=== PATIENT | female | born 1985 | race Caucasian/White ===

== ENCOUNTER 2016-10-20 20:47 | Emergency (ER) | payer BC, OTHER ==
[2016-10-20] MEDS ORDERED: KETOROLAC TROMETHAMINE 30 MG/1 ML VIAL IVPUSH ONE (20:49)
[2016-10-20] MEDS ORDERED: SODIUM CHLORIDE 1,000 ML IV STA (20:49)
--- NOTE | 2016-10-20 20:58 | PDOC ---
History of Present Illness - General History Source: Patient Exam Limitations: No Limitations - History of Present Illness Initial Comments: 10/20/16 20:59 The patient is a 31 year old female with no PMHx who presents to the ED with left flank pain today. SHe reports that the pain has progressively worsened since this afternoon. She states that the pain wraps around to the front of her abdomen. She reports nausea, but no vomiting. She denies diaphoresis. She denies prior similar symptoms. <Perlita Chiang - Last Filed: 10/20/16 21:11> <Peterson Meza - Last Filed: 10/21/16 00:40> - General Chief Complaint: Pain, Acute Stated Complaint: LEFT FLANK PAIN Time Seen by Provider: 10/20/16 20:49 Past History <Perlita Chiang - Last Filed: 10/20/16 21:11> - Immunization History Immunization Up to Date: Yes - Psycho/Social/Smoking Cessation Hx Anxiety: No Suicidal Ideation: No Smoking Status: No Smoking History: Never smoked Number of Cigarettes Smoked Daily: 0 <Peterson Meza - Last Filed: 10/21/16 00:40> - Past Medical History Allergies/Adverse Reactions: Allergies Allergy/AdvReac Type Severity Reaction Status Date / Time No Known Allergies Allergy Unverified 02/10/13 23:10 Home Medications: Ambulatory Orders Cephalexin Monohydrate [Keflex] 500 mg PO Q6H #20 capsule 02/10/13 Review of Systems - Review of Systems : Yes: Flank Pain (left) <Perlita Chiang - Last Filed: 10/20/16 21:11> *Physical Exam - Physical Exam General Appearance: Yes: Nourished, Appropriately Dressed, Apparent Distress (2/ 2 PAIN) HEENT: positive: Normal ENT Inspection (BUT DRY MUCOSAE) Respiratory/Chest: positive: Lungs Clear, Normal Breath Sounds. negative: Respiratory Distress Cardiovascular: positive: Regular Rhythm, Regular Rate Gastrointestinal/Abdominal: positive: Normal Bowel Sounds, Tender (LLQ NO G/R), Soft Musculoskeletal: positive: Normal Inspection. negative: CVA Tenderness Extremity: positive: Normal Capillary Refill, Normal Inspection Integumentary: positive: Normal Color. negative: Rash Neurologic: positive: Fully Oriented, Alert, Normal Mood/Affect, Normal Response , Motor Strength 5/5 <Peterson Meza - Last Filed: 10/21/16 00:40> ED Treatment Course - LABORATORY CBC & Chemistry Diagram: 10/20/16 21:00 10/20/16 21:00 <Perlita Chiang - Last Filed: 10/20/16 21:11> - LABORATORY CBC & Chemistry Diagram: 10/20/16 21:00 10/20/16 21:00 <Peterson Meza - Last Filed: 10/21/16 00:40> Progress Note - Progress Note Progress Note: LIKELY RENAL COLIC PAIN CONTROL/LABS/IVF/REASSESS CT: LT OVARIAN CYST US: 6 CM LT OV CYST. GOOD FLOW FEELS BETTER <Peterson Meza - Last Filed: 10/21/16 00:40> *DC/Admit/Observation/Transfer - Attestations Scribe Attestion: 10/20/16 20:59 Documentation prepared by Perlita hCiang, acting as medical claims analyst for Peterson Meza MD. <Perlita Chiang - Last Filed: 10/20/16 21:11> <Peterson Meza - Last Filed: 10/21/16 00:40> Diagnosis at time of Disposition: Cyst of ovary Qualifiers: Laterality: left Qualified Code(s): N83.20 - Unspecified ovarian cysts - Discharge Dispostion Condition at time of disposition: Stable - Patient Instructions Additional Instructions: IBUPROFEN 600 MG 3 TIMES A DAY FOR 3 DAYS SEE YOUR [employer]OR[employer] SUPERVISOR THIS WEEK RETURN IF WORSENING OR NEW SYMPTOMS
[2016-10-20 21:07] LABS: URINE APPEARANCE Clear; URINE BILIRUBIN Negative (NEGATIVE); URINE GLUCOSE (UA) Negative (NEGATIVE); URINE KETONE Negative (NEGATIVE); URINE NITRITE Negative (NEGATIVE); URINE PROTEIN Negative (NEGATIVE); URINE UROBILINOGEN 0.2 E.U/dl (0.2-1.0)
[2016-10-20 21:13] LABS: BASOPHIL 0.5 % (0-2.0); EOSINOPHIL 3.4 % (0-4.5); MCH 28.8 pg (25.7-33.7); MCHC 33.1 g/dl (32.0-36.0); MEAN CELL VOLUME 87.2 fl (80-96); MEAN PLT VOLUME 6.8 fl (7.5-11.1); NEUTROPHILS 59.6 % (42.8-82.8); PLATELET COUNT 366 K/MM3 (134-434); RDW 12.4 % (11.6-15.6); WHITE BLOOD COUNT 8.8 K/mm3 (4.0-10.0)
[2016-10-20 21:26] LABS: CALCIUM 8.4 mg/dl (8.4-10.2); CREATININE 0.6 mg/dl (0.6-1.3)
[2016-10-20 21:27] LABS: URINE BLOOD 2+ (NEGATIVE); URINE COLOR YELLOW; URINE LEUK ESTERASE 1+ (NEGATIVE); URINE RBC 0-2 /hpf (0-3)
[2016-10-20 21:28] LABS: URINE BACTERIA FEW /hpf (NEGATIVE)
[2016-10-20] MEDS ORDERED: morphine CARPU-JECT 4 MG/1 ML DISP.SYRIN IVPUSH ONE ×2 (22:00→22:25)
[2016-10-20] MEDS ORDERED: morphine CARPU-JECT 2 MG/1 ML DISP.SYRIN IVPUSH ONE (23:07)
[2016-10-20 23:15] VITALS: BP 111/71; PULSE 96; TEMP 97.6; BMI 25.0
== END 2016-10-21 00:43 | disposition home or self-care (01) ==
LOC: FER 20:47
PROC: 3E033NZ Introduction of Analgesics, Hypnotics, Sedatives into Peripheral Vein, Percutaneous Approach (ICD-10-PCS; principal; 2016-10-20)
PROC: 3E0333Z Introduction of Anti-inflammatory into Peripheral Vein, Percutaneous Approach (ICD-10-PCS; 2016-10-20)
PROC: 3E0337Z Introduction of Electrolytic and Water Balance Substance into Peripheral Vein, Percutaneous Approach (ICD-10-PCS; 2016-10-20)
DX: N83.209 Unspecified ovarian cyst, unspecified side (principal)
CPT/HCPCS: 36415; 74176-TC; 76856-TC; 80048; 81003; 81015; 84703; 85025; 96361; 96374; 96375; 96376; 99281-25